=== PATIENT | female | born 1960 | race Caucasian/White ===

== ENCOUNTER 2021-08-10 10:11 | Emergency (ER) | payer OTHER, SELFPAY ==
--- NOTE | 2021-08-10 10:13 | ED.FEMALEGU ---
HPI - Female Genitourinary General Chief complaint: Urogenital-Female Stated complaint: Urinary Problem Time Seen by Provider: 08/10/21 10:13 Source: patient and RN notes reviewed History of Present Illness HPI Narrative: Patient is a 61-year-old female who presents the urgent care with complaints of lower abdominal cramping. Patient states she has had slight history with UTIs but nothing recurrent. Patient has had diverticulitis in the past but wants to rule out a UTI. 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 Patient denies any nausea, vomiting, diarrhea. Denies any urinary symptoms such as dysuria, frequency or urgency. Patient has been taking ibuprofen for her pain. No other acute complaints. No acute distress noted. Patient aware of the plan of care. Some parts of this dictation were generated by voice recognition software and may contain typographical and/or grammatical inaccuracies. Related Data Home Medications Medication Instructions Recorded Confirmed cholecalciferol (vitamin D3) 25 25 mcg PO DAILY 07/17/19 08/10/21 mcg (1,000 unit) capsule Allergies Allergy/AdvReac Type Severity Reaction Status Date / Time No Known Allergies Allergy Verified 08/10/21 10:17 Review of Systems Review of Systems: CONSTITUTIONAL: Denies fever, chills, or sweats. EYES: Denies visual changes, redness, or discharge. ENT: Denies rhinorrhea, congestion, sore throat, or otalgia. CARDIOVASCULAR: Denies chest pain, palpitations, or edema. RESPIRATORY: Denies cough or dyspnea. GASTROINTESTINAL: Reports of lower abdominal cramping without nausea, vomiting or diarrhea GENITOURINARY: Denies dysuria or hematuria. SKIN: Denies rash or itching. MUSCULOSKELETAL: Denies back pain, joint pain, or myalgia. NEUROLOGIC: Denies headache, numbness, or weakness. All other systems reviewed are negative, except as documented in HPI. [facility] Past Medical History Medical History Anxiety Gastroesophageal reflux Stage 1 hypertension Surgical History Surgical History History of left oophorectomy 2008 Hx of cholecystectomy 2005 Family History Family History Sibling Family history of premature coronary heart disease Family history of lymphoma Patient's brother is , Onset Age: 23 Mother Diabetes mellitus Family history of hypercholesterolemia Hypertension Family history of lymphoma, Onset Age: 76 Father Patient's father is , Onset Age: 40 Other Family history of malignant neoplasm Social History Social History (Updated 06/28/21 @ 08:29 by Inocencia Rios [facility]) Second hand tobacco smoke exposure: No Alcohol intake: current Drinks per week: 1 Alcohol use details: glass of wine Pt also consumes 12 cups of caffienated coffee daily Substance use: never Substance use type: does not use Gender identity (if verbalized by the patient): Female Comments At the time of my signature, I reviewed and agree with the nursing past medical, surgical, social, and family history. There is no relevant family history pertinent to the patient complaint. Exam Narrative: GENERAL: This is a well-nourished, well-developed patient, in no apparent distress. HEAD: normocephalic, atraumatic. EYES: PERRL. Sclera clear/white. Vision is grossly intact. EARS: External ears normal NOSE: External nose normal with no obvious nasal discharge, nares without redness, no rhinorrhea. THROAT: Mucous membranes moist NECK: Neck supple CARDIOVASCULAR: Regular rate and rhythm without murmurs, gallops, or rubs. RESPIRATORY: Clear to auscultation. Breath sounds equal bilaterally. No wheezes, rales, or rhonchi. GASTROINTESTINAL: Diff
[2021-08-10 10:17] VITALS: BP 144/52; PULSE 83; RESP 18; TEMP 36.1; O2SAT 98
== END 2021-08-10 10:40 | disposition home or self-care (01) ==
PROVIDERS: Emergency Provider Nurse Practitioner Family; PCP Family Medicine
DX: R10.30 Lower abdominal pain, unspecified (principal); Z87.19 Personal history of other diseases of the digestive system; K21.9 Gastro-esophageal reflux disease without esophagitis; I10 Essential (primary) hypertension
CPT/HCPCS: 81003; 99212; G0463

== ENCOUNTER 2022-03-02 00:51 | Day surgery (SDC) | payer OTHER, SELFPAY ==
[2022-02-22 08:46] VITALS: BMI 39.2
[2022-03-02 08:27] VITALS: BP 152/88; PULSE 88; RESP 18; TEMP 35.9; O2SAT 98
[2022-03-02] MEDS: LACTATED RINGERS 1,000 ML 150 ML IV CONT (08:36)
--- NOTE | 2022-03-02 09:04 | WPDANESEPPF ---
Anes - Initial Pre Proc Eval Procedure: Operation Date: 03/02/22 09:45 Proposed Procedures p Esophagogastroduodenoscopy EGD - Jewel Silva MD Date/Time: 03/02/22 09:04 Surgeon: Jewel Silva MD Pre Op Diagnosis: GERD Patient Data Age: 62 Gender: F Height: 1.7 m Weight: 123.1 kg Last Vital Signs Temp 96.6 F L 03/02/22 08:27 Pulse 88 03/02/22 08:27 Resp 18 03/02/22 08:27 BP 152/88 H 03/02/22 08:27 Pulse Ox 98 03/02/22 08:27 O2 Del Method Room Air 03/02/22 08:27 Allergies Allergy/AdvReac Type Severity Reaction Status Date / Time No Known Allergies Allergy Verified 03/02/22 08:26 Home Medications Medication Instructions Recorded Confirmed Type sertraline 50 mg tablet See Rx Instructions .Route 11/24/21 02/22/22 Rx .COMPLEX #90 tabs Patient hx anesthesia problems: none Family hx anesthesia problems: none Results Review: All pre-operative results and documents have been reviewed as part of the pre-operative evaluation. [facility] Past Medical History Medical History Anxiety Gastroesophageal reflux Sensation of chest pressure Stage 1 hypertension Vitamin D deficiency Surgical History Surgical History History of left oophorectomy 2009 Hx of cholecystectomy 2005 Family History Family History Sibling Family history of premature coronary heart disease Family history of lymphoma Patient's brother is , Onset Age: 23 Mother Diabetes mellitus Family history of hypercholesterolemia Hypertension Family history of lymphoma, Onset Age: 76 Father Patient's father is , Onset Age: 40 Other Family history of malignant neoplasm Social History Social History Smoking status: Never smoker Second hand tobacco smoke exposure: No Alcohol intake: current Drinks per week: 1 Alcohol use details: rarely Substance use: never Substance use type: does not use Lack of Transportation: No Lack of Food: Never True Current Housing: I Have Housing Concerned About Future Housing: No Difficulty Paying Gas/Electric Bills: No Difficulty Paying for Meds: No Currently Unemployed: No Education: Associate Degree Difficulty w/ Childcare or Family Care: No Living arrangements: with family Gender identity (if verbalized by the patient): Female Spiritual care concerns: No Agree to blood products: Yes Anes - Eval Final PreProcedure Day of Procedure 03/02/22 09:04 Patient weight: morbidly obese Heart: regular rate and rhythm Lungs: clear to auscultation Airway: Mallampati scale class II Neurological: alert and oriented Last oral intake: >/= 8 hours ASA classification: III Emergent: no Anesthetic plan: proceed Anesthesia type and monitoring: general GIVS and standard monitoring Results Review: All pre-operative results and documents have been reviewed as part of the pre-operative evaluation. Informed Consent: The patient's anesthetic plan and its attendant risks and benefits were discussed with the patient/family/POA. Questions were solicited and answers provided to the satisfaction of the patient/family/POA.
--- NOTE | 2022-03-02 09:38 | PM.HPGS ---
History of Present Illness History of Present Illness Consent: Risks, benefits, and alternatives have been discussed and questions answered. Patient agrees to proceed with procedure. Chief complaint: GERD Narrative: Ema Escobar is a 62 year old female with GERD taking OTC as needed, never had egd Review of Systems Constitutional: Constitutional: Denies headache(s) and Denies weakness Eyes: Eyes: Denies blurry vision ENT: Reports Normal hearing present, Denies headache(s) and Denies neck pain Cardiovascular: Cardiovascular: Denies chest pain and Denies dyspnea Respiratory: Respiratory: Denies dyspnea Gastrointestinal: Gastrointestinal: Reports no additional gastrointestinal complaints Genitourinary: Genitourinary: Denies dysuria Musculoskeletal: Musculoskeletal: Denies neck pain Integumentary/Breasts: Skin/Breast: Denies dry skin Neurologic: Reports Normal hearing present, Denies headache(s) and Denies weakness Psychiatric: Psychiatric: Denies anxiety Endocrine: Endocrine: Denies change in body appearance Hematologic/Lymphatic: Hematologic/Lymphatic: Denies easy bleeding Allergic/Immunologic: Allergic/Immunologic: Denies urticaria PMFSH Past Medical History Medical History Anxiety Gastroesophageal reflux Sensation of chest pressure Stage 1 hypertension Vitamin D deficiency Surgical History Surgical History History of left oophorectomy 2009 Hx of cholecystectomy 2006 Family History Family History Sibling Family history of premature coronary heart disease Family history of lymphoma Patient's brother is , Onset Age: 23 Mother Diabetes mellitus Family history of hypercholesterolemia Hypertension Family history of lymphoma, Onset Age: 76 Father Patient's father is , Onset Age: 40 Other Family history of malignant neoplasm Social History Social History Smoking status: Never smoker Second hand tobacco smoke exposure: No Alcohol intake: current Drinks per week: 1 Alcohol use details: rarely Substance use: never Substance use type: does not use Lack of Transportation: No Lack of Food: Never True Current Housing: I Have Housing Concerned About Future Housing: No Difficulty Paying Gas/Electric Bills: No Difficulty Paying for Meds: No Currently Unemployed: No Education: Associate Degree Difficulty w/ Childcare or Family Care: No Living arrangements: with family Gender identity (if verbalized by the patient): Female Spiritual care concerns: No Agree to blood products: Yes Meds Home Medications and Allergies Home Medications Medication Instructions Recorded Confirmed Type sertraline 50 mg tablet See Rx Instructions .Route 11/24/21 02/22/22 Rx .COMPLEX #90 tabs Allergies Allergy/AdvReac Type Severity Reaction Status Date / Time No Known Allergies Allergy Verified 03/02/22 08:26 Vital Signs Vital Signs - 24 hr 03/02/22 08:27 Temperature 96.6 F L Pulse Rate 88 Respiratory Rate 18 Blood Pressure 152/88 H Pulse Oximetry 98 Oxygen Delivery Room Air Exam Const: General: comfortable and no acute distress HENMT: Face/Nose/Sinus: Normal nares present Eyes: General: appearance normal, both eyes and all related structures Neck: Neck: no JVD Resp: Auscultation: clear to auscultation bilaterally Cardio: Rate: regular rate Rhythm: regular rhythm GI: Inspection: non-distended GI Palp: Yes Soft to palpation Skin: General skin exam: normal color Neuro: General: gait normal Speech: normal speech Extrem: General: normal to inspection Psych: Mental Status: mental status grossly normal Assessment and Plan Assessment and plan (1) Gastroesophageal
[2022-03-02 09:50] VITALS: BP 118/74; PULSE 78; RESP 18; TEMP 35.9; O2SAT 98
[2022-03-02 10:00] VITALS: BP 131/84; PULSE 84; RESP 18; TEMP 35.9; O2SAT 98
[2022-03-02 10:08] VITALS: BP 141/83; PULSE 81; RESP 19; TEMP 35.9; O2SAT 98
== END 2022-03-02 10:14 | disposition home or self-care (01) ==
PROVIDERS: PCP Family Medicine; Visit Provider Internal Medicine Gastroenterology
PROC: 0DJ08ZZ Inspection of Upper Intestinal Tract, Via Natural or Artificial Opening Endoscopic (ICD-10-PCS; CPT 43235; principal; 2022-03-02 09:45)
DX: K21.00 Gastro-esophageal reflux disease with esophagitis, without bleeding (principal); K44.9 Diaphragmatic hernia without obstruction or gangrene; K29.70 Gastritis, unspecified, without bleeding; F41.9 Anxiety disorder, unspecified; E66.01 Morbid (severe) obesity due to excess calories; Z68.41 Body mass index [BMI] 40.0-44.9, adult
CPT/HCPCS: 43239; 88305; J2704; J7120